=== PATIENT | female | born 1945 | race Caucasian/White ===

== ENCOUNTER → 2019-08-13 07:04 | Outpatient (CLI) | payer MEDICARE, SELFPAY ==
--- NOTE | 2019-08-13 07:05 | NM_ITS ---
APPROVED REPORT Exam: Nuclear Stress Test Indication: HTN, HYPERLIPIDEMIA, FM. HX, C.P., SOB, FATIGUE Patient Location: Outpatient Stress Tech: Mary Ibarra [place] Tech:Jennifer Guevara SHAKALazaro RT (R)(N)(M) Ht: 5 ft 4 in Wt: 156 lbs Bra Size: 38D HR: 61 bpm BP: 152/71 mmHg BSA: 1.76 m2 BMI: 26.7 History: HTN, HYPERLIPIDEMIA, FM. HX, C.P., SOB, FATIGUE Procedure: Patient received a 0.4 mg of intravenous Lexiscan, resting heart rate 61 bpm, resting blood pressure 152/71 mmHg, with Lexiscan maximum heart rate achived was 92 bpm which is Less than 85 % of the maximum predicted heart rate and blood pressure was 142/66 mmHg. With Lexiscan, patient denied any complaint of chest pain. Electrocardiogram Resting electrocardiogram showed sinus rhythm, with Lexiscan there is less than 1.[address] segment depression noted from the baseline EKG. The EKG portion of the Lexiscan Myoview is nondiagnostic. Cardiac Stress and Resting SPECT Images: Cardiac Stress and Resting SPECT images were obtained using technetium 99m Myoview 30.2 mCi stress and 10.99 mCi at rest. Gated SPECT for the analysis of segmental wall motion and calculation of the ejection fraction also done. Cardiac stress and resting SPECT images show uniform myocardial activity without segmental perfusion abnormality, computer derived ejection fraction is over 65% with no regional wall motion abnormality, right ventricle is normal size and contractility. Conclusion: 1. The EKG portion of the Lexiscan Myoview is nondiagnostic. 2. No scintigraphic evidence of reversible ischemia seen, computer derived ejection fraction is over 65% with no regional wall motion abnormality, right ventricle is normal size and contractility. 3. Normal Lexiscan Myoview study. Electronically signed by : Ld Kingston, 08/14/2019 10:00:06
--- NOTE | 2019-08-13 07:05 | CA_ITS ---
APPROVED REPORT EXAM: Comprehensive 2D, Doppler, and color-flow Echocardiogram Metal Tile Lather: Alessia Gracia CRT Ht: 5 ft 4 in Wt: 161lbs BSA: 1.78 BP: 143/68 mmHg Indications: Abnormal ECG, Chest Pain, Shortness of Breath, Hyperlipidemia, Hypertension/HDD 2D Dimensions LVOT 2.01 cm (M/F) 1.5-2.5 M-Mode Dimensions RVDd 2.17 cm (0.9-2.6) LVDd 5.37 cm (3.5-5.7) LVDs 3.28 cm (3.5-5.7) IVSd 0.95 cm (0.6-1.1) PWd 0.88 cm (0.6-1.1) EF (Teich) 68.80% FS 38.90% EDV (Teich) 139.50 mL ESV (Teich) 43.50 mL LV Diastology E/A Ratio 0.87 Mitral Valve MV A Velocity 80.00 (40-130 cm/s) Left Ventricle Left atrium is mildly enlarged, left ventricle is normal size, mild concentric left ventricular hypertrophy, visually estimated ejection fraction 55% with no regional wall motion abnormality, grade 1 diastolic dysfunction seen without tissue Doppler evidence of raise left atrial pressure. Right Ventricle Right atrium and right ventricle are mildly enlarged with normal contractility. Aortic Valve Aortic valve is minimally thickened and fibrosed, there is no aortic stenosis, there is mild aortic insufficiency. Mitral Valve Mitral valve leaflets are minimally thickened, there is no mitral stenosis, there is mild mitral regurgitation. Tricuspid Valve Tricuspid valve is grossly normal, there is mild tricuspid regurgitation, calculated right ventricular systolic pressure is 28 mmHg. Pulmonic Valve Pulmonic valve is poorly visualized. Great Vessels Aortic root is normal size. Pericardium No significant pericardial effusion noted. Conclusion 1. Mild biatrial enlargement, normal left ventricular size, mild concentric left ventricular hypertrophy, visually estimated ejection fraction 55% with no regional wall motion abnormality, grade 1 diastolic dysfunction seen without tissue Doppler evidence of raise left atrial pressure. 2. Mildly enlarged right ventricle with normal contractility. 3. Mild aortic, mild mitral and tricuspid regurgitation, calculated right ventricular systolic pressure is 28 mmHg. 4. No significant pericardial effusion noted. Electronically signed by : Ld Kingston 08/14/2019 10:54:17
--- NOTE | 2019-08-13 07:05 | CA_ITS ---
APPROVED REPORT Exam: Pharmacologic Technologist: Mary Ibarra Ht: 5 ft 4 in Wt: 156 lbs BSA: 1.76 m2 HR: 61 bpm BP: 152/71 mmHg Indications: Shortness of Air, chest pain Medical History Medications: Omeprazole,,,,, Alprazolam,,,,, Levothyroxine,,,,, Aspirin,,,,, Simvastatin,,,,, Carvedilol,,,,, DulOXETINE,,,,, Cyclobenzaprine,,,,, TriMethopriim,,,,, Stress Test Details Test: LEXISCAN HR Resting HR: 66 bpm Max Heart Rate (APMHR): 146 bpm Max HR Achieved: 94 bpm Target HR (85% APMHR): 124 bpm % of APMHR: 64 Recovery HR: 71 bpm BP Resting BP: 152.0/71.0 mmHg Max BP: 152.0/71.0 mmHg Recovery BP: 142.0/69.0 mmHg ECG Clinical Exercise duration: 04:01 min Highest Stage Achieved: Stress ECG Conclusion Resting ECG: Normal sinus rhythm, low voltage QRS in precordial leads. Symptoms: Leg weakness, mild stomach discomfort. No chest pain. Arrhythmias/Ectopy: Occasional PAC ST-T Changes: No significant changes. Conclusion: Unremarkable Lexiscan stress. Myoview images reported separately. Electronically signed by : Ld Kingston, 08/14/2019 09:58:11
--- NOTE | 2019-08-13 08:00 | HMH.ITSHM ---
Current Home Medications as stated by this patient Tran Conley or human resources hr representative. []ASA ALPRAZOLAM MAGNESIUM CARVEDILOL DICLOFENAC PRESERVISION DULOXETINE FISH OIL LEVOTHYROXINE OMEPRAZOLE SIMVASTATIN
== END ==
PROVIDERS: PCP Internal Medicine; Visit Provider Internal Medicine
DX: E78.2 Mixed hyperlipidemia (principal); I10 Essential (primary) hypertension; R06.02 Shortness of breath; R07.9 Chest pain, unspecified; R94.31 Abnormal electrocardiogram [ECG] [EKG]
CPT/HCPCS: 78452; 93017; 93306; A9502; J2785

== ENCOUNTER 2019-08-21 08:29 | Day surgery (SDC) | payer MEDICARE, SELFPAY ==
[2019-08-21] VITALS (11 sets, daily range): BP systolic 123–151; BP diastolic 59–80; PULSE 52–69; RESP 16–18; TEMP 36.3; O2SAT 92–99; BMI 26.9
--- NOTE | 2019-08-21 | IR_ITS ---
APPROVED REPORT Patient Location: Outpatient Business Development Specialist: LUIS CARLOS Heller RT (R) PROCEDURES Left heart catheterization Left ventriculogram Selective coronary angiogram INDICATION Abnormal Myoview, Angina pectoris Informed consent was obtained prior to the procedure. COMPLICATIONS None Estimated Blood Loss: less than 10ml TECHNIQUE One percent lidocaine used to anesthetize the right anterior aspect of the wrist. The right radial artery was accessed via the Seldinger technique. A 6 American sheath was placed in the right radial artery. 2.5 mg of verapamil, 800 mcg of nitroglycerin, 1mg Lidocaine and 5000 U Heparin were given through the arterial sheath. The trap catheter was also used to perform left heart catheterization, left ventriculogram and selective coronary angiogram. At the end of the procedure the sheath was removed good hemostasis was achieved using Traclet band, patient was transferred to the postop holding area in stable condition. ANGIOGRAPHIC RESULTS The left main artery Normal The left anterior descending artery Normal The circumflex artery Normal The right coronary artery Dominant normal The MERLOS ventriculogram reveals Normal 65% The left ventricular end-diastolic pressure 10 mmHg IMPRESSION Normal coronary arteries Normal ejection fraction Normal left ventricular end-diastolic pressure PLAN 1. Medical management Electronically signed by : Jabari Hickey, 08/21/2019 10:28:20
[2019-08-21 09:06] LABS: Hemoglobin 14.1 g/dL (12.2-16.2); Mean Corpuscular HGB Conc 33.6 g/dL (31.8-35.4); Mean Corpuscular Hemoglobin 34.2 pg (27.0-31.2); Mean Corpuscular Volume 101.9 fl (81-99); Mean Platelet Volume 7.6 fl (7.4-10.4); Platelet Count 231 K/mm3 (142-424); Red Blood Count 4.12 M/mm3 (4.20-5.40); Red Cell Distribution Width 14.2 % (11.5-17.5); White Blood Count 6.8 K/mm3 (4.8-10.8)
[2019-08-21 09:07] LABS: Basophils # 0.1 K/mm3 (0-0.2); Eosinophils # 0.5 K/mm3 (0.0-0.4); Eosinophils % 6.7 % (0.1-12.0); Monocytes # 0.6 K/mm3 (0.1-1.0); Monocytes % 8.1 % (1.7-9.3); Neutrophils # 3.7 K/mm3 (1.8-7.8); Neutrophils % 54.3 % (37.0-80.0)
[2019-08-21 09:17] LABS: Anion Gap 11.1 mEq/L (5-15); Blood Urea Nitrogen 22 mg/dl (7-17); Calcium 10.6 mg/dl (8.4-10.2); Carbon Dioxide 35 mmol/L (22.0-30.0); Chloride 97 mmol/L (98-107); Creatinine Clearance Estimated 55 mL/min (50-200); Estimated Glomerular Filt Rate 121 ml/min (>60); GFR (African American) 146 ML/MIN (>60); Glucose 103 mg/dl (74-100); Potassium 4.1 mmoL/L (3.5-5.1); Sodium 139 mmol/L (136-145)
== END 2019-08-21 13:53 | disposition home or self-care (01) ==
LOC: CATHLAB 08:32
PROVIDERS: PCP Internal Medicine; Visit Provider Internal Medicine
DX: I25.118 Atherosclerotic heart disease of native coronary artery with other forms of angina pectoris (principal); I10 Essential (primary) hypertension; E03.9 Hypothyroidism, unspecified; E78.5 Hyperlipidemia, unspecified; Z88.1 Allergy status to other antibiotic agents; Z88.9 Allergy status to unspecified drugs, medicaments and biological substances; Z79.82 Long term (current) use of aspirin; Z79.899 Other long term (current) drug therapy; Z91.041 Radiographic dye allergy status
CPT/HCPCS: 80048; 85025; 93458; 99152; C1725; C1769; J1644; Q9967

== ENCOUNTER 2024-12-10 13:26 | Outpatient (CLI) | payer MEDICARE, SELFPAY ==
--- OUTSIDE RECORDS SUMMARY | 2024-10-13 16:00 | XMS_ITS | Encounter Summary ---
Author Organization [place] [address] Care Team Providers Care Braille Teacher Name Role Phone Venkatesh Lan MD Primary Care Provider Alexandr Arboleda MD Unavailable [phone] Encounter Details Date Type Department Care Team (Latest Contact Info) Description 10/13/2024 5:00 PM EDT - 10/13/2024 11:59 PM EDT Hospital Encounter [facility] [address] [place] [address] Rheumatoid arthritis of multiple sites with negative rheumatoid factor (HCC); Inflammatory osteoarthritis; Primary osteoarthritis involving multiple joints; Spondylosis of lumbosacral region 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 radiculopathy; Spondylosis of cervical region 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 radiculopathy; Macular degeneration of both eyes, unspecified type; Medication monitoring encounter Discharge Disposition: Home or Self Care Social History Tobacco Use Types Packs/Day Years Used Date Smoking Tobacco: Never Smokeless Tobacco: Never Alcohol Use Standard Drinks/Week Comments Not Currently 0 (1 standard drink = 0.6 oz pur e alcohol) Sexually Active Control Partners Comments Yes Comments No Sex and Gender Information Value Date Recorded Sex Assigned at Not on file Legal Sex Female 11:51 PM EDT Gender Identity Not on file Sexual Orientation Not on file documented as of this encounter Medications at Time of Discharge alprazolam (XANAX) 0.5 mg tablet Take 0.5 mg by mouth nightly. b szwvumh-X-dqssh acid (NEPHROCAP) 1 mg Oral Capsule Take 1 Capsule by mouth daily. calcium citrate/vitamin D3 (CITRACAL + D ORAL) Take 2,400 mg by mouth daily. carvediloL (COREG) 6.25 mg Oral Tablet Take 6.25 mg by mouth 2 times daily (with meals). ELIQUIS 5 mg Oral Tablet Take 5 mg by mouth 2 times daily. 11/21/2022 estradioL (ESTRACE) 0.01 % (0.1 mg/gram) Vagl CreamIndications:Vag inal atrophy Place 1 g vaginally nightly. Do not use applicator. Apply pea sized amount to the area 3 times a week 42.5 g 1 12/14/2021 gabapentin (NEURONTIN) 100 mg Oral Capsule Take 2 Capsules by mouth 2 times daily. 120 Capsule 5 08/21/2023 hydroCHLOROthiazide (HYDRODIURIL) 12.5 mg Oral Tablet Take 12.5 mg by mouth every morning. LEVOthyroxine (SYNTHROID) 75 mcg Oral Tablet Take 75 mcg by mouth every morning. multivit-min/ferrous fumarate (MULTI VITAMIN ORAL) Take by mouth daily. OMEGA-3 FATTY ACIDS (FISH OIL CONCENTRATE ORAL) Take 1,200 mg by mouth 2 times daily. omeprazole (PRILOSEC) 20 mg Take 20 mg by mouth daily as needed. prednisoLONE acetate (PRED FORTE) 1 % Opht Drops, SuspensionIndication s:Glaucoma suspect of both eyes Place 1 Drop into both eyes 4 times daily. On the Laser eye after the Laser Procedure 5 mL 08/03/2023 PROLIA 60 mg/mL SubQ Syringe Inject ONE ML UNDER THE SKIN FOR one DAY FOR osteoporosis, REPEAT in six MONTHS 08/01/2024 simvastatin (ZOCOR) 20 mg tablet Take 20 mg by mouth nightly. vit C/E/Zn/coppr/lutein/ zeaxan (PRESERVISION AREDS-2 ORAL) Take 1 Tablet by mouth 2 times daily. XARELTO 10 mg Oral Tablet Take 10 mg by mouth daily. 04/20/2023 bimatoprost 0.01 % Opht DropsIndications:Lorena manpreet open angle glaucoma (POAG) of both eyes, mild stage Place 1 Drop into both eyes nightly. 7.5 mL 1 07/24/2024 5 cycloSPORINE (CEQUA) 0.09 % Opht DropperetteIndicatio ns:Keratitis sicca Place 1 Drop into both eyes 2 times daily. 180 Each 1 03/27/2024 5 diclofenac sodium (PENNSAID) 20 mg/gram /actuation(2 %) Top solution in metered-dose pump Apply 40 mg topically 2 times daily. 2 Each 5 05/19/2024 5 DULoxetine (CYMBALTA) 60 mg Oral Capsule, Delayed Release(E.C.)Indicat ions:Primary osteoarthritis involving multiple joints Take 1 Cap by mouth daily. 90 Cap 1 03/29/2020 5 sulfaSALAzine (AZULFIDINE) 500 mg Oral Tablet, Delayed Release (E.C.)Indications:Rh eumatoid arthritis of multiple sites with negative rheumatoid factor (HCC) TAKE THREE TABLETS BY MOUTH TWICE DAILY 540 Tablet 04/14/2024 5 documented as of this encounter Discharge Disposition Disposition Code Departure Means Destination Home or Self Care documented in this encounter Plan of Treatment Upcoming Encounters Date Type Department Care Team (Late st Contact Info) Description 12/17/2024 1:45 PM EST Office Visit [facility] [address] [address] Kory Garcia MD [address] [place] [phone] 12/29/2024 1:00 PM EST Office Visit [address] [address] 01/07/2025 11:00 AM EST Office Visit [address] [address] Greg Stringer PA-C [address] [address] 01/23/2025 10:30 AM EST Appointment [facility] Building [address] 4th [address] [place] [address] Lucinda Contreras, SCENARIO WRITER [address] [facility], [place] [phone] 03/03/2025 11:45 AM EST Office Visit [facility] [address] [facility] [address] Lucinda Contreras, SCENARIO WRITER [address] [place], [place] [id number] 03/24/2025 3:00 PM EST Office Visit [facility] [address] [facility] [address] [place], [place] [id number] Alexandr Arboleda MD [address] [facility] [address] [place], [place] [phone] 03/31/2025 10:45 AM EST Office Visit [facility] [address] [place] [address] Carl Rivera MD [address] [place], [place] [id number] documented as of this encounter Procedures Procedure Name Priority Date/Time Associated Diagnosis Comments SEDIMENTATION RATE AUTOMATED Routine 10/13/2024 5:07 PM EDT Rheumatoid arthritis of multiple sites with negative rheumatoid factor (HCC) 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 of cervical region 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 radiculopathy Macular degeneration of both eyes, unspecified type Medication monitoring encounter CBC WITH DIFF Routine 10/13/2024 5:07 PM EDT Rheumatoid arthritis of multiple sites with negative rheumatoid factor (HCC) 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 of cervical region 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 radiculopathy Macular degeneration of both eyes, unspecified type Medication monitoring encounter C-REACTIVE PROTEIN Routine 10/13/2024 5: 07 PM EDT Rheumatoid arthritis of multiple sites with negative rheumatoid factor (HCC) 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 of cervical region 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 radiculopathy Macular degeneration of both eyes, unspecified type Medication monitoring encounter COMPREHENSIVE METABOLIC PANEL Routine 10/13/2024 5:07 PM EDT Rheumatoid arthritis of multiple sites with negative rheumatoid factor (HCC) 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 of cervical region 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 radiculopathy Macular degeneration of both eyes, unspecified type Medication monitoring encounter documented in this encounter Results * SEDIMENTATION RATE AUTOMATED (10/13/2024 5:07 PM EDT) Pathologist [facility] Sed Rate 3 0 - 30 mm/hr 10/13/2024 9:45 PM EDT [facility] [employer] Blood VENOUS BLOOD / Unknown Venipuncture / Unknown 10/13/2024 5:07 PM EDT 10/13/2024 5:18 PM EDT Alexandr Arboleda MD HEMATOLOGY ORDERABLES Final R esult Performing Organization Address [facility] Co de Phone Number [facility] [employer] [address] [place] [address] , [place] [address] * C-REACTIVE PROTEIN (10/13/2024 5:07 PM EDT) [facility] CRP <3.00 <=5.00 mg/L 10/13/2024 10:09 PM EDT [employer] Blood VENOUS BLOOD / Unknown Venipuncture / Unknown 10/13/2024 5:07 PM EDT 10/13/2024 5:18 PM EDT Alexandr Arboleda MD CHEMISTRY ORDERABLES Final Re sult Performing Organization Address City/[facility]/ZIP Co de Phone Number [facility] [employer] [address] , [place] [address] * (ABNORMAL) COMPREHENSIVE METABOLIC PANEL (10/13/2024 5:07 PM EDT) Sodium 143 136 - 145 mmol/L 10/13/2024 10:09 PM EDT [facility] Potassium 3.4(L) 3.5 - 5.0 mmol/L 10/13/2024 10:09 PM EDT [facility] Chloride 101 98 - 107 mmol/L 10/13/2024 10:09 PM EDT [facility] Total CO2 30(H) 22 - 29 mmol/L 10/13/2024 10:09 PM EDT [facility] Anion Gap 12 7 - 16 mmol/L 10/13/2024 10:09 PM EDT [facility] Calcium 10.1 8.8 - 10.4 mg/dL 10/13/2024 10:09 PM EDT [facility] Glucose Lvl 84 70 - 99 mg/dL 10/13/2024 10:09 PM EDT [facility] BUN 18 8 - 23 mg/dL 10/13/2024 10:09 PM EDT [facility] Creatinine 0.67 0.51 - 1.30 mg/dL 10/13/2024 10:09 PM EDT [facility] Albumin 4.4 3.2 - 4.6 gm/dL 10/13/2024 10:09 PM EDT [facility] Total Protein 6.6 6.4 - 8.3 gm/dL 10/13/2024 10:09 PM EDT [facility] Bili Total 0.4 0.2 - 1.3 mg/dL 10/13/2024 10:09 PM EDT [facility] ALT 26 <=41 U/L 10/13/2024 10:09 PM EDT [facility] AST 29 <=40 U/L 10/13/2024 10:09 PM EDT [facility] Alk Phos 56 36 - 123 U/L 10/13/2024 10:09 PM EDT [facility] eGFR (CKD-EPIcr 2020) 88 >=60 mL/min/1.7 3 m2 10/13/2024 10:09 PM EDT [facility] Comment:Estimated GFR was ca lculated using the CKD-EPIcr (2020) equation refit without race. The equation is recommended by the National Kidney Foundation - [place] [employer] Nephrology Task Force. Blood VENOUS BLOOD / Unknown Venipuncture / Unknown 10/13/2024 5:07 PM EDT 10/13/2024 5:18 PM EDT us Alexandr Arboleda MD CHEMISTRY ORDERABLES Final Re sult [facility] [address] [facility] , [place] [address] * (ABNORMAL) CBC WITH DIFF (10/13/2024 5:07 PM EDT) WBC 5.4 3.7 - 10.3 x10(3)/mc L 10/13/2024 9:58 PM EDT [facility] RBC 3.46(L) 3.90 - 5.20 x10(6)/mc L 10/13/2024 9:58 PM EDT [facility] Hgb 11.5 11.2 - 15.7 g/dL 10/13/2024 9:58 PM EDT [facility] Hct 36.8 34.0 - 45.0 % 10/13/2024 9:58 PM EDT [facility] MCV 106.4(H) 80.0 - 100.0 fL 10/13/2024 9:58 PM EDT [facility] MCH 33.2 26.0 - 34.0 pg 10/13/2024 9:58 PM EDT [facility] MCHC 31.3 30.7 - 35.5 g/dL 10/13/2024 9:58 PM EDT [facility] RDW 13.4 <=14.9 % 10/13/2024 9:58 PM EDT [facility] Platelet 252 155 - 369 x10(3)/mc L 10/13/2024 9:58 PM EDT [facility] MPV 10.1 8.8 - 12.5 fL 10/13/2024 9:58 PM EDT [facility] Neut Percent 51.8 % 10/13/2024 9:58 PM EDT [facility] Comment:Neutrophils equals s egs plus bands Imm Gran% 0.4 % 10/13/2024 9:58 PM EDT [facility] Comment:Automated count of m etamyelocytes, myelocytes and promyelocytes. Lymph Percent 30.7 % 10/13/2024 9:58 PM EDT [facility] Bibb Percent 13.6 % 10/13/2024 9:58 PM EDT [facility] Eos Percent 2.6 % 10/13/2024 9:58 PM EDT [facility] Baso Percent 0.9 % 10/13/2024 9:58 PM EDT [facility] Neut # 2.8 1.6 - 6.1 x10(3)/mc L 10/13/2024 9:58 PM EDT [facility] Comment:Neutrophils equals s egs plus bands IMMGRAN# 0.0 0.0 - 0.1 x10(3)/mc L 10/13/2024 9:58 PM EDT [facility] Comment:Automated count of m etamyelocytes, myelocytes and promyelocytes. An absolute IG <0.1 is reported as 0.0. Lymph # 1.7 1.2 - 3.9 x10(3)/mc L 10/13/2024 9:58 PM EDT [facility] Bibb # 0.7 0.3 - 0.9 x10(3)/mc L 10/13/2024 9:58 PM EDT [facility] Eos# 0.1 0.0 - 0.5 x10(3)/mc L 10/13/2024 9:58 PM EDT [facility] Baso # 0.1 0.0 - 0.1 x10(3)/mc L 10/13/2024 9:58 PM EDT [facility] RBC Morph Consistent with Red Cell Indices no units 10/13/2024 9:58 PM EDT [facility] Blood VENOUS BLOOD / Unknown Venipuncture / Unknown 10/13/2024 5:07 PM EDT 10/13/2024 5:18 PM EDT us Alexandr Arboleda MD HEMATOLOGY ORDERABLES Final R esult [facility] [employer] [address] [facility] , [facility] [place] [address] documented in this encounter Visit Diagnoses Diagnosis Rheumatoid arthritis of multiple sites with negative rheumatoid factor (HCC) Inflammatory osteoarthritis Osteoarthrosis, unspecified whether generalized or localized, unspecified site 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 Lumbosacral spondylosis without myelopathy Spondylosis of cervical region 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 radiculopathy Cervical spondylosis without myelopathy Macular degeneration of both eyes, unspecified type Medication monitoring encounter Encounter for therapeutic drug monitoring documented in this encounter Additional Health Concerns Assessment Noted Time A fall risk assessment has been complete d for the patient 12/02/2018 1:25 PM EDT documented as of this encounter Care Teams Braille Teacher Relationship Specialty Start Date End Date Venkatesh Lan MD [address] [place] [address] PCP - General 09/07/09 Alexandr Arboleda MD [address] [place] [id number] Internal Medicine-Rheumatology 03/10/14 documented as of this encounter
--- OUTSIDE RECORDS SUMMARY | 2024-10-21 09:55 | XMS_ITS | Encounter Summary ---
Author Organization [place] [address] Care Team Providers Care Guest Relations Associate Name Role Phone Venkatesh Lan MD Primary Care Provider Alexandr Arboleda MD Unavailable [phone] Reason for Referral * Interventional Radiology (Routine) - Closed Specialty Diagnoses / Procedures Referred By Jenni schaffer Referred To Contact Radiology Diagnoses Cervical radiculitis Procedures IR CERVICAL/THORACIC RIP WITH GUIDANCE Lucinda Contreras APRN [address] [place] [address] Phone: tel: fax: Referral ID Status Reason Start Date Expiration Date Visits Re quested Visits Authorized [id number] Closed 09/25/2024 09/25/2025 1 1 Reason for Visit * Interventional Radiology (Routine) - Closed Specialty Diagnoses / Procedures Referred By Jenni schaffer Referred To Contact Radiology Diagnoses Cervical radiculitis Procedures IR CERVICAL/THORACIC RIP WITH GUIDANCE Lucinda Contreras APRN [address] [place] [address] Phone: tel: fax: Referral ID Status Reason Start Date Expiration Date Visits Re quested Visits Authorized [id number] Closed 09/25/2024 09/25/2025 1 1 Encounter Details Date Type Department Care Team (Latest Contact Info) Description 10/21/2024 10:55 AM EDT - 10/21/2024 11:59 PM EDT Hospital Encounter [facility] [address] [place] [address] Lucinda Contreras, CHARGE MACHINE OPERATOR [address] [place], [place] [id number] Cervical radiculitis Discharge Disposition: Home or Self Care Social [...] on file documented as of this encounter Last Filed Vital Signs Vital Sign Reading Time Taken Comments Blood Pressure 129/62 10/21/2024 11:45 AM EDT Pulse 52 10/21/2024 11:45 AM EDT Temperature 36.5 C (97.7 F) 10/21/2024 11:02 AM EDT Respiratory Rate - - Oxygen Saturation 99% 10/21/2024 11:45 AM EDT Inhaled Oxygen Concentration - - Weight - - Height - - Body Mass Index - - documented in this encounter Discharge Instructions * Discharge Instructions* Glenna Chávez, RT - 10/21/2024 11:03 AM EDT To make a follow-up office visit please call: [facility] [phone] option #1 OUTPATIENT SPINE DISCHARGE INSTRUCTIONS AFTER THE PROCEDURE SYMPTOMS MAY INCLUDE: Weakness/numbness in arm, leg, which disappears in a few hours No driving for 12 hours Resume medications *resume blood thinners next day* Mild soreness at injection site Pain may worsen right after procedure Steroid results may take 3 to 7 days to begin to have a positive effect Wait 2 weeks to get a Covid vaccine HOME CARE INSTRUCTIONS: No heat on the injection site for 24 hours Use ice packs/mild pain relievers to help with mild pain Do not soak in water for 24 hours Remove bandage in a few hours Resume your normal activities the next day Observe injection site for any signs of infection; example: redness, warmth, swelling Resume blood thinners the next day SEEK MEDICAL CARE IF YOU DEVELOP: Fever of 100?? F Severe headache, stiff neck, or sensitivity to light Lose control over your bladder or bowel movements Difficulty breathing New onset numbness or weakness Severe back pain, which is not relieved by medication IF YOU ARE DIABETIC: Please note that your blood sugar may increase post procedure. We recommend that you check your blood sugar regularly. If your blood sugar results are above 250: If you have a plan to lower your blood sugar, please follow those instructions. If you do not have a plan to regulate your blood sugars, please contact the Physician that manages your diabetes and inform them you had a steroid injection. Procedure Nurse Line - M- 7:30am-4pm call [phone] After and Fridays, please call [phone] to be connected to the on-call physician. documented in this encounter Medications at Time of Discharge alprazolam (XANAX) 0.5 mg tablet Take 0.5 mg by mouth nightly. b dvcgbyb-I-frqbi acid (NEPHROCAP) 1 mg Oral Capsule Take 1 Capsule by mouth daily. calcium citrate/vitamin D3 (CITRACAL + D ORAL) Take 2,400 mg by mouth daily. carvediloL (COREG) 6.25 mg Oral Tablet Take 6.25 mg by mouth 2 times daily (with meals). diclofenac sodium (PENNSAID) 20 mg/gram /actuation(2 %) Top solution in metered-dose pump Apply 40 mg topically 2 times daily. 2 Each 5 10/21/2024 DULoxetine (CYMBALTA) 60 mg Oral Capsule, Delayed Release(E.C.)Indicat ions:Primary osteoarthritis involving multiple joints Take 1 Capsule by mouth daily. 90 Capsule 1 10/21/2024 ELIQUIS 5 mg Oral Tablet Take 5 [...] tablet Take 20 mg by mouth nightly. sulfaSALAzine (AZULFIDINE) 500 mg Oral Tablet, Delayed Release (E.C.)Indications:Rh eumatoid arthritis of multiple sites with negative rheumatoid factor (HCC) Take 3 Tablets by mouth 2 times daily. 540 Tablet 10/21/2024 vit C/E/Zn/coppr/lutein/ zeaxan (PRESERVISION AREDS-2 ORAL) Take [...] times daily. 180 Each 1 03/27/2024 5 documented as of this encounter Discharge Disposition Disposition Code Departure Means Destination Home or Self Care documented in this encounter Progress Notes * Glenna Chávez, RT - 10/21/2024 11:00 AM EDT Pt tolerated procedure well. No new pain, numbness or tingling. Dressing dry and intact. Verbal andwritten discharge instructions given and pt states understanding. Pt was checked for stability and discharged with a airport driver via wheelchair. documented in this encounter Plan of Treatment Upcoming Encounters Date Type Department Care Team (Late st Contact Info) Description 12/17/2024 1:45 PM EST Office Visit [facility] [address] [address] Kory Garcia MD [address] [place] [id number] 12/29/2024 1:00 PM EST Office Visit [address] [id number] 01/07/2025 11:00 AM EST Office Visit [address] [address] Greg Stringer PA-C [address] [address] 01/23/2025 10:30 AM EST Appointment [facility] [address] [facility] [address] 4[address] [place] [address] Lucinda Contreras, CHARGE MACHINE OPERATOR [address] [place] [address] 03/03/2025 11:45 AM EST Office Visit [facility] [address] [place] [address] Lucinda Contreras APRN [address] [place] [address] 03/24/2025 3:00 PM EST Office Visit [facility] [address] [facility] [address] [place], [place] [id number] Alexandr Arboleda MD [address] [facility] [address] [place], [place] [id number] 03/31/2025 10:45 AM EST Office Visit [facility] [address] [place] [address] Carl Rivera MD [address] [place] [address] documented as of this encounter Procedures Procedure Name Priority Date/Time Associated Diagnosis Comments IR CERVICAL/THORACIC RIP WITH GUIDANCE Routine 10/21/2024 11:37 AM EDT Cervical radiculitis documented in this encounter Results * IR CERVICAL/THORACIC RIP WITH GUIDANCE (10/21/2024 11:37 AM EDT) Anatomical Region Laterality Modality Radio Fluoroscop y Narrative 10/21/2024 11:43 AM EDT [facility] PROCEDURE NOTE Tran Conley October 21, 2024 SURGEON(S): Javi Coy MD PRE-OP DIAGNOSIS: Cervical radiculopathy POST-OP DIAGNOSIS: Cervical radiculopathy IMAGING: Fluoroscopy PROCEDURE: Cervical Epidural Steroid Injection Under Fluoroscopic Guidance Level: C7-T1 PROCEDURE DETAILS: After reviewing the patient's chart, informed consent was obtained and the patient was brought to the procedure room. The patient was placed in a prone position on fluoroscopy table with their neck flexed and their head in a herron. A formal time out was performed identifying the correct patient, correct procedure, reviewing anticoagulation status, reviewing allergies and verifying the correct sites and side. Next, their neck and upper thoracic back was prepped with antiseptic solution and draped in the usual sterile fashion. The overlying skin was identified under fluoroscopic guidance and infiltrated with 1% Lidocaine for local anesthesia via 25 gauge needle. [facility] was used under fluoroscopic guidance to access the epidural space using loss of resistance to air technique at C7-T1 interspace. Approximately 2 mL of Isovue 200 contrast was used to confirm needle position and contrast spread. Following negative aspiration, a mixture of 15 mg of Decadron and 2 mL's of preservative free normal saline was injected with minimal pressure. CSF was negative, Paresthesia was negative, Heme was negative. The needle was cleared with preservative free local anesthetic and removed. Skin was cleaned and a sterile dressing was applied. The patient tolerated the procedure well and vital signs were stable and patient was taken to the procedure recovery room without issues. EBL: approx 0-1cc Images of procedure found under images tab dated: 10/21/2024 DISPOSITION/POST PROC COURSE: The patient was monitored for any adverse hemodynamic, allergic, or neurological symptoms. The patient tolerated the procedure well with no apparent complications. Vital signs remained stable throughout the procedure. The patient was taken to the recovery area where written discharge instructions for the procedure were given. The patient was discharged home. @VITALS@ Javi Coy MD Interventional Pain Management [facility] Date: 10/21/2024 Lucinda Cervantes CHARGE MACHINE OPERATOR IMG IR ORDERABLES Final Result documented in this encounter Visit Diagnoses Diagnosis Cervical radiculitis Brachial neuritis or radiculitis nos documented in this encounter Administered Medications Inactive Administered Medications - up to 1 most recent administrations Medication Order MAR Action Action Date Dose Rate Site dexAMETHasone sodium phosphate (DECADRON) solution 15 mg 15 mg, Injection, ONCE PRN, 1 dose, Starting on Sun10/21/24 at 1137, Until Sun10/21/24 at 1139, Spine Procedure, OP Spine (Meds) Given by Other 10/21/2024 11:39 AM EDT 15 mg gadoterate meglumine (DOTAREM) solution 2 mL 2 mL, Intravenous, ONCE PRN, 1 dose, Starting on Sun10/21/24 at 1137, Until Sun10/21/24 at 1140, Spine Procedure, VESICANT , OP Spine (Meds) Given by Other 10/21/2024 11:40 AM EDT 2 mL lidocaine 10 mg/mL (1 %) injection (PF) 5 mL 5 mL, Intradermal, ONCE PRN, 1 dose, Starting on Sun10/21/24 at 1137, Until Sun10/21/24 at 1139, Spine Procedure, OP Spine (Meds) Given by Other 10/21/2024 11:39 AM EDT 5 mL sodium chloride 0.9% injection/flush solution 1 mL 1 mL, Epidural, ONCE PRN, 1 dose, Starting on Sun10/21/24 at 1137, Until Sun10/21/24 at 1139, Line Care, Spine Procedure, OP Spine (Meds) Given by Other 10/21/2024 11:39 AM EDT 1 mL documented in this encounter Additional Health Concerns Assessment Noted Time A fall risk assessment has been complete d for the patient 12/02/2018 1:25 PM EDT documented as of this encounter Care Teams Guest Relations Associate Relationship Specialty Start Date End Date Venkatesh Lan MD [address] [place] [address] PCP - General 09/07/09 Alexandr Arboleda MD [address] [address] Internal Medicine-Rheumatology 03/10/14 documented as of this encounter
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
--- OUTSIDE RECORDS SUMMARY | 2024-11-17 12:00 | XMS_ITS | Encounter Summary ---
Author Organization [facility] Address [address] [place] [address] Care Team Providers Care Agile Coach Name Role Phone Venkatesh Lan MD Primary Care Provider Alexandr Arboleda MD Unavailable [phone] Reason for Referral * Surgical (Routine) - AFF Authorization Not Needed Specialty Diagnoses / Procedures Referred By Contsusanne t Referred To Contact Diagnoses Trigger thumb, right thumb Procedures AMB OC SURGERY COMMUNICATION ORDER SD TENDON SHEATH INCISION Jerrica Dey PA-C [address] [place] [address] Phone: tel: fax: Referral ID Status Reason Start Date Expiration Date Visits Requested Visits Authorized [id number] AFF Authorization Not Needed 11/17/2025 1 1 Encounter Details Date Type Department Care Team (Late st Contact Info) Description 11/17/2024 1:00 [place] [address] Jerrica Dey PA-C [address] [place] [address] Trigger thumb, right thumb (Primary Dx) Social History Tobacco Use Types Packs/Day Years [...] on file documented as of this encounter Progress Notes * Basil Cordon ATC - 11/17/2024 1:00 PM EDTAssociated Order(s): Hand / Upper Extremity Injection/Arthrocentesis: R thumb A1 Hand / Upper Extremity Injection/Arthrocentesis: R thumb A1 Date/Time: 11/17/2024 1:00 PM Consent given by: patient Site marked: site marked Timeout: Immediately prior to procedure a time out was called to verify the correct patient, procedure, equipment, software support engineer and site/side marked as required Supporting Documentation Indications: pain Procedure Details Condition: trigger finger Location: thumb - R thumb A1 Preparation: Patient was prepped and draped in the usual sterile fashion Needle size: 25 G Approach: volar Medications administered: 1 mg betamethasone acet-betamethasone sodium phos 6 mg/mL Patient tolerance: patient tolerated the procedure well with no immediate complications Injection Type: Tendon Sheath Ligament * Jerrica Dey PA-C - 11/17/2024 1:00 PM EDT Images from the original note were not included. CHIEF COMPLAINT: Catching, clicking of right thumb History: 78 y.o. female who presents with complaints of sharp pain, catching and clicking Pain localized to the palm with radiation to the PIP joint. Worse with gripping activities. Duration: 1-2 months Previous treatment: None Gets steroid injections in back and in knees. Would like to try one injection and if does not work would like to proceed with surgery. [place] Diabetes: Patient is not diabetic. No results found for: HGBA1C Right Upper Extremity examination: Thumb Palpable nodule over the A1 alireza. Grade II triggering. No atrophy. range of motion: full Impression: right thumb trigger digit Plan: Discussed diagnosis of trigger digit including the natural history and treatment options - steroid injection versus surgery. Discussed and demonstrated a home exercise program. Patient education handout provided. Recommended and discussed the use of OTC medications for pain control. Discussed risks and benefits of steroid injection - patient elected to proceed. Patient would like to proceed with surgery if this does not resolve symptoms. [place] so will sign consent only. To minimize the need to return to the practice in person - in the most cost and time effective nature as possible I have discussed the potential need for surgery in the future. Assuming the symptoms do not improve and the patient wishes to proceed they may do so by simply contacting my office to schedule surgery in the near future. They understand at any point that new symptoms develop, current symptoms change or they have further questions about their care they will schedule a regular follow up to meet face to face. Given risk factors for failure of steroid injections -- recommended and consented for surgery. right thumb trigger digit release The risks, benefits and indications for operative treatment were discussed at length with the patient. Risks were specifically reviewed and include, but are not limited to: the risks of anesthesia, bleeding, infection, injury to nerve or vessel with permanent distal functional loss, continued mechanical symptoms and the need for secondary surgery. The postoperative course was explained. All questions were answered. The patient expressed understanding and the willingness to proceed. Antibiotics Rx - will be sent if proceeds. documented in this encounter Plan of Treatment Upcoming Encounters Date Type Department Care Team (Late st Contact Info) Description 12/17/2024 1:45 PM EST [facility] [address] [address] Kory Garcia MD [facility] [place] [address] 12/29/2024 1:00 PM EST Office Visit [address] [address] 01/07/2025 11:00 AM EST Office Visit [address], [place] [id number] Greg Stringer PA-C [address] [place] [address] 01/23/2025 10:30 AM EST Appointment [facility] [address] [facility] [address] 4th Floor [address] [place] [id number] Lucinda Contreras, FORKLIFT TECHNICIAN [address] [place] [address] 03/03/2025 11:45 AM EST Office Visit [facility] [address] [facility] [place] [address] Lucinda Contreras, FORKLIFT TECHNICIAN [address] [place], [place] [id number] 03/24/2025 3:00 PM EST Office Visit [facility] [address] [facility] [address] [place], [place] [phone] Alexandr Arboleda MD [address] [facility] Building [address] [place], [place] [phone] 03/31/2025 10:45 AM EST Office Visit [facility] [address] [place] [address] Carl Rivera MD [address] [place], [place] [id number] documented as of this encounter Procedures Procedure Name Priority Date/Time Associated Diagnosis Comments SD INJECTION 1 TENDON SHEATH/LIGAMENT APONEUROSIS Routine 11/17/2024 1:00 PM EDT Trigger thumb, right thumb documented in this encounter Results * SD INJECTION 1 TENDON SHEATH/LIGAMENT APONEUROSIS (11/17/2024 1:00 PM EDT) Narrative [facility]TH[facility] - 11/17/2024 1:00 PM EDT Basil Cordon, NANCY 11/17/2024 5:06 PM Hand / Upper Extremity Injection/Arthrocentesis: R thumb A1 Date/Time: 11/17/2024 1:00 PM Consent given by: patient Site marked: site marked Timeout: Immediately prior to procedure a time out was called to verify the correct patient, procedure, equipment, software support engineer and site/side marked as required Supporting Documentation Indications: pain Procedure Details Condition: trigger finger Location: thumb - R thumb A1 Preparation: Patient was prepped and draped in the usual sterile fashion Needle size: 25 G Approach: volar Medications administered: 1 mg betamethasone acet-betamethasone sodium phos 6 mg/mL Patient tolerance: patient tolerated the procedure well with no immediate complications Injection Type: Tendon Sheath Ligament Jerrica Dey PA-C PROCEDURE/MINOR SURGICA L ORDERABLES Final Result ORTHOCINCY documented in this encounter Visit Diagnoses Diagnosis Trigger thumb, right thumb- Primary documented in this encounter Administered Medications Inactive Administered Medications - up to 1 most recent administrations Medication Order MAR Action Action Date Dose Rate Site betamethasone acet-betamethasone sodium phos (CELESTONE) injection 1 mg 1 mg, Intra-articular, ONCE PRN, 1 dose, Starting on Sun11/17/24 at 1300, Until Sun11/17/24 at 1300, Dx: 1. Trigger thumb, right thumbIndications:Trigger thumb, right thumb Given 11/17/2024 1:00 PM EDT 1 mg Right Hand documented in this encounter Orders Medications Ordered That Sonu ht Not Have Been Administered Count Last Ordered Date First Ordered Date betamethasone acet-betametha sone sodium phos (CELESTONE) injection 1 mg 1 11/17/2024 Nursing Count Last Ordered Date First Orde red Date AMB OC SURGERY COMMUNICATION ORDER 1 2024 documented in this encounter Additional Health Concerns Assessment Noted Time A fall risk assessment has been complete d for the patient 12/02/2018 1:25 PM EDT documented as of this encounter Care Teams Agile Coach Relationship Specialty Start Date End Date Venkatesh Lan MD [address] [place] [address] PCP - General 09/07/09 Alexandr Arboleda MD [address] [place] [address] Internal Medicine-Rheumatology 03/10/14 documented as of this encounter
--- OUTSIDE RECORDS SUMMARY | 2024-11-25 10:35 | XMS_ITS | Encounter Summary ---
Author Organization [facility] Address [facility] [place] [address] Care Team Providers Care Substance Abuse Rn Name Role Phone Venkatesh Lan MD Primary Care Provider Alexandr Arboleda MD Unavailable [phone] Encounter Details Date Type Department Care Team (Latest Contact Info) Description 11/25/2024 11:35 AM EDT - 11/25/2024 11:59 PM EDT Hospital Encounter [facility] [address] [place] [id number] Rheumatoid arthritis of multiple sites with negative [...] Take 0.5 mg by mouth nightly. b tfgyguk-T-lxxdu acid (NEPHROCAP) 1 mg Oral Capsule Take 1 Capsule by mouth daily. bimatoprost 0.01 % Opht DropsIndications:Lorena manpreet open angle glaucoma (POAG) of both eyes, mild stage Place 1 Drop into both eyes nightly. 7.5 mL 3 11/25/2024 calcium citrate/vitamin D3 (CITRACAL + D ORAL) Take 2,400 mg by mouth daily. carvediloL (COREG) 6.25 mg Oral Tablet Take 6.25 mg by mouth 2 times daily (with meals). cycloSPORINE (CEQUA) 0.09 % Opht DropperetteIndicatio ns:Keratitis sicca Place 1 Drop into both eyes 2 times daily. 180 Each 1 11/25/2024 diclofenac sodium (PENNSAID) 20 mg/gram /actuation(2 %) [...] Take 10 mg by mouth daily. 04/20/2023 documented as of this encounter Discharge Disposition Disposition Code Departure Means Destination Home or Self Care documented in this encounter Plan of Treatment Upcoming Encounters Date Type Department Care Team (Late st Contact Info) Description 12/17/2024 1:45 PM EST Office Visit Zeke Sinclairence [address] [facility] [facility] Kory Garcia MD [address] [place] [address] 12/29/2024 1:00 PM EST Office Visit [address] [address] 01/07/2025 11:00 AM EST Office Visit [address] [address] Greg Stringer PA-C [address] [place] [address] 01/23/2025 10:30 AM EST Appointment [facility] [address] [facility] [address] 4th Floor - [address] [place] [phone] Lucinda Contreras, PUBLIC [employer]ESS [employer]CH[employer]IC [address] [facility] [place] [address] 03/03/2025 11:45 AM EST Office Visit [facility] [address] [place] [address] Lucinda Contreras, PUBLIC [employer]DRESS [employer] MECH[employer]IC [address] [place], [place] [id number] 03/24/2025 3:00 PM EST Office Visit [facility] [address] [place], [place] [id number] Alexandr Arboleda MD [address] [facility] Building [address] [place] [address] 03/31/2025 10:45 AM EST Office Visit [facility] [address] [place] [address] Carl Rivera MD [address] [place], [place] [phone] documented as of this encounter Procedures Procedure Name Priority Date/Time Associated Diagnosis Comments SEDIMENTATION RATE AUTOMATED Routine 11/25/2024 11:55 AM EDT Rheumatoid arthritis of multiple sites with negative rheumatoid factor (HCC) 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 of cervical region 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 radiculopathy Macular degeneration of both eyes, unspecified type Medication monitoring encounter CBC WITH DIFF Routine 11/25/2024 11:55 AM EDT Rheumatoid arthritis of multiple sites with negative rheumatoid factor (HCC) 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 of cervical region 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 radiculopathy Macular degeneration of both eyes, unspecified type Medication monitoring encounter C-REACTIVE PROTEIN Routine 11/25/2024 11 :55 AM EDT Rheumatoid arthritis of multiple sites with negative rheumatoid factor (HCC) 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 of cervical region 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 radiculopathy Macular degeneration of both eyes, unspecified type Medication monitoring encounter COMPREHENSIVE METABOLIC PANEL Routine 11/25/2024 11:55 AM EDT Rheumatoid arthritis of multiple sites with negative rheumatoid factor (HCC) 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 of cervical region 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 radiculopathy Macular degeneration of both eyes, unspecified type Medication monitoring encounter documented in this encounter Results * SEDIMENTATION RATE AUTOMATED (11/25/2024 11:55 AM EDT) [facility] Sed Rate 3 0 - 30 mm/hr 11/25/2024 12:41 PM EDT [facility] [employer] Blood VENOUS BLOOD / Unknown Venipuncture / Unknown 11/25/2024 11:55 AM EDT 11/25/2024 11:55 AM EDT Alexandr Arboleda MD HEMATOLOGY ORDERABLES Final R esult Performing Organization Address City/[facility]/ZIP Co de Phone Number [facility] [employer] [address] [place] [address] , [place] [address] * C-REACTIVE PROTEIN (11/25/2024 11:55 AM EDT) [facility] CRP <3.00 <=5.00 mg/L 11/25/2024 12:59 PM EDT [employer] Blood VENOUS BLOOD / Unknown Venipuncture / Unknown 11/25/2024 11:55 AM EDT 11/25/2024 11:55 AM EDT Alexandr Arboleda MD CHEMISTRY ORDERABLES Final Re sult Performing Organization Address City/[facility]/ZIP Co de Phone Number [facility] [employer] [address] , [place] [address] * (ABNORMAL) COMPREHENSIVE METABOLIC PANEL (11/25/2024 11:55 AM EDT) Sodium 139 136 - 145 mmol/L 11/25/2024 12:59 PM EDT [facility] Potassium 4.0 3.5 - 5.0 mmol/L 11/25/2024 12:59 PM EDT [facility] Chloride 101 98 - 107 mmol/L 11/25/2024 12:59 PM EDT [facility] Total CO2 27 22 - 29 mmol/L 11/25/2024 12:59 PM EDT [facility] Anion Gap 11 7 - 16 mmol/L 11/25/2024 12:59 PM EDT [facility] Calcium 9.6 8.8 - 10.4 mg/dL 11/25/2024 12:59 PM EDT [facility] Glucose Lvl 93 70 - 99 mg/dL 11/25/2024 12:59 PM EDT [facility] BUN 12 8 - 23 mg/dL 11/25/2024 12:59 PM EDT [facility] Creatinine 0.42(L) 0.51 - 1.30 mg/dL 11/25/2024 12:59 PM EDT [facility] Albumin 4.6 3.2 - 4.6 gm/dL 11/25/2024 12:59 PM EDT [facility] Total Protein 6.5 6.4 - 8.3 gm/dL 11/25/2024 12:59 PM EDT [facility] Bili Total 0.5 0.2 - 1.3 mg/dL 11/25/2024 12:59 PM EDT [facility] ALT 23 <=41 U/L 11/25/2024 12:59 PM EDT [facility] AST 26 <=40 U/L 11/25/2024 12:59 PM EDT [facility] Alk Phos 53 36 - 123 U/L 11/25/2024 12:59 PM EDT [facility] eGFR (CKD-EPIcr 2020) 98 >=60 mL/min/1.7 3 m2 11/25/2024 12:59 PM EDT [facility] Comment:Estimated GFR was ca lculated using the CKD-EPIcr (2020) equation refit without race. The equation is recommended by the National Kidney Foundation - [place] [employer] of Nephrology Task Force. Blood VENOUS BLOOD / Unknown Venipuncture / Unknown 11/25/2024 11:55 AM EDT 11/25/2024 11:55 AM EDT us Alexandr Arboleda MD CHEMISTRY ORDERABLES Final Re sult [facility] [address] [facility] [facility] , [place] [address] * (ABNORMAL) CBC WITH DIFF (11/25/2024 11:55 AM EDT) WBC 4.6 3.7 - 10.3 x10(3)/mcL 11/25/2024 12:41 PM EDT [facility] RBC 3.66(L) 3.90 - 5.20 x10(6)/mcL 11/25/2024 12:41 PM EDT [facility] Hgb 12.2 11.2 - 15.7 g/dL 11/25/2024 12:41 PM EDT [facility] Hct 38.1 34.0 - 45.0 % 11/25/2024 12:41 PM EDT [facility] MCV 104.1(H) 80.0 - 100.0 fL 11/25/2024 12:41 PM EDT [facility] MCH 33.3 26.0 - 34.0 pg 11/25/2024 12:41 PM EDT [facility] MCHC 32.0 30.7 - 35.5 g/dL 11/25/2024 12:41 PM EDT [facility] RDW 13.1 <=14.9 % 11/25/2024 12:41 PM EDT [facility] Platelet 213 155 - 369 x10(3)/mcL 11/25/2024 12:41 PM EDT [facility] MPV 9.4 8.8 - 12.5 fL 11/25/2024 12:41 PM EDT [facility] Neut Percent 47.9 % 11/25/2024 12:41 PM EDT [facility] Comment:Neutrophils equals s egs plus bands Imm Gran% 0.2 % 11/25/2024 12:41 PM EDT [facility] Comment:Automated count of m etamyelocytes, myelocytes and promyelocytes. Lymph Percent 33.4 % 11/25/2024 12:41 PM EDT [facility] [place] Percent 14.5 % 11/25/2024 12:41 PM EDT [facility] Eos Percent 2.9 % 11/25/2024 12:41 PM EDT [facility] Baso Percent 1.1 % 11/25/2024 12:41 PM EDT [facility] Neut # 2.2 1.6 - 6.1 x10(3)/mcL 11/25/2024 12:41 PM EDT [facility] Comment:Neutrophils equals s egs plus bands IMMGRAN# 0.0 0.0 - 0.1 x10(3)/mcL 11/25/2024 12:41 PM EDT [facility] Comment:Automated count of m etamyelocytes, myelocytes and promyelocytes. An absolute IG <0.1 is reported as 0.0. Lymph # 1.5 1.2 - 3.9 x10(3)/mcL 11/25/2024 12:41 PM EDT [facility] [place] # 0.7 0.3 - 0.9 x10(3)/mcL 11/25/2024 12:41 PM EDT [facility] Eos# 0.1 0.0 - 0.5 x10(3)/mcL 11/25/2024 12:41 PM EDT [facility] Baso # 0.1 0.0 - 0.1 x10(3)/mcL 11/25/2024 12:41 PM EDT [facility] Blood VENOUS BLOOD / Unknown Venipuncture / Unknown 11/25/2024 11:55 AM EDT 11/25/2024 11:55 AM EDT us Alexandr Arboleda MD HEMATOLOGY ORDERABLES Final R esult [facility] [address] [facility] , [address] [place] [phone] documented in this encounter Visit Diagnoses Diagnosis [...] therapeutic drug monitoring documented in this encounter Orders Lab Orders Without Results Count Last Ordered D ate First Ordered Date C-REACTIVE PROTEIN 2 11/25/2024 CBC WITH DIFF 2 11/25/2024 COMPREHENSIVE METABOLIC PANEL 2 11/25/2024 SEDIMENTATION RATE AUTOMATED 2 11/25/2024 documented in this encounter Additional Health Concerns Assessment Noted Time A fall risk assessment has been complete d for the patient 12/02/2018 1:25 PM EDT documented as of this encounter Care Teams Substance Abuse Rn Relationship Specialty Start Date End Date Venkatesh Lan MD [address] [place] [address] PCP - General 09/07/09 Alexandr Arboleda MD [address] [place] [id number] Internal Medicine-Rheumatology 03/10/14 documented as of this encounter
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
--- OUTSIDE RECORDS SUMMARY | 2024-12-02 10:45 | XMS_ITS | Encounter Summary ---
Author Organization [facility] [place] [address] Care Team Providers Care Laborer Pole Crew Name Role Phone Venkatesh Lan MD Primary Care Provider Alexandr Arboleda MD Unavailable [phone] Reason for Referral * Interventional Radiology (Routine) - Pending Review Specialty Diagnoses / Procedures Referred By Contsusanne t Referred To Contact Radiology Diagnoses Cervical radiculitis Procedures IR CERVICAL/THORACIC RIP WITH GUIDANCE Lucinda Contreras APRN [address] [place] [address] Phone: tel: fax: Referral ID Status Reason Start Date Expiration Date V isits Requested Visits Authorized [id number] Pending Review 12/02/2024 12/02/2025 1 1 Reason for Visit * Reason Comments Neck Pain Follow-up Encounter Details Date Type Department Care Team (Late st Contact Info) Description 12/02/2024 11:45 AM EDT Office Visit [facility] [address] [place] [address] Lucinda Contreras APRN [address] [id number] Cervical radiculitis (Primary Dx); DDD (degenerative disc disease), cervical; Spondylosis of cervical region 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 radiculopathy; Foraminal stenosis of cervical region Social History Tobacco Use Types Packs/Day Years Used Date Smoking Tobacco: Never Smokeless Tobacco: Never Tobacco Cessation:Counseling Given: Not Answered Alcohol Use Standard Drinks/Week Comments Not Currently [...] Sign Reading Time Taken Comments Blood Pressure - - Pulse 58 12/02/2024 11:35 AM EDT Temperature - - Respiratory Rate - - Oxygen Saturation 93% 12/02/2024 11:35 AM EDT Inhaled Oxygen Concentration - - Weight 59.4 kg (131 lb) 12/02/2024 11:35 AM EDT Height - - Body Mass Index 21.8 10/21/2024 2:17 PM EDT documented in this encounter Progress Notes * Lucinda Contreras APRN - 12/02/2024 11:45 AM EDT Images from the original note were not included. Subjective Subjective: Patient ID: Tran Conley is a 78 y.o. female who presents today for Chief Complaint Patient presents with Neck Pain Follow-up HPI: The patient is a 78-year-old female who presents for follow-up evaluation regarding their pain. Sheis on Xarelto and Eliquis. Symptoms are gradually improving since last visit. Since last visit, thepatient underwent Cervical epidural steroid injection. The patient reports 80% relief of pain following the procedure. Pain relief is ongoing. Overall reports good relief. Does have intermittent pains shooting down the right side that are tolerable. Had steroid injections in bilateral knees with Ortho last week. Can repeat cervical RIP as needed after 3 months. She would like to plan on repeatingafter 3 months to help get her through the holidays. Characterization of Primary Pain: Location of Pain: Neck - bilateral Pain Ratin/10 on NRS Quality: aching, shooting, and tingling Temporal Profile: constant with intermittent exacerbations Referral Pattern: Pain radiates down the right arm Exacerbating Factors: increased activity, turning head, and looking up Relieving Factors: rest, medications, and injections Associated Symptoms: Patient denies any red flag symptoms such as urinary/bowel incontinence, progressive weakness in the extremities, and/or saddle anesthesia. Review of Systems Constitutional: Negative for activity change and appetite change. HENT: Negative for hearing loss and tinnitus. Eyes: Negative for photophobia and visual disturbance. Respiratory: Negative for chest tightness and shortness of breath. Cardiovascular: Negative for chest pain and palpitations. Gastrointestinal: Negative for abdominal pain and constipation. Endocrine: Negative for cold intolerance and heat intolerance. Musculoskeletal: Positive for myalgias and neck pain. Skin: Negative for rash. Neurological: Negative for seizures, weakness and headaches. Psychiatric/Behavioral: Negative for agitation, behavioral problems and dysphoric mood. All other systems reviewed and are negative. Patients past medical, surgical, family and social histories were reviewed and updated. There were no changes except as noted. Objective Objective: Vitals: 12/02/24 1135 Pulse: 58 SpO2: 93% Weight: 131 lb (59.4 kg) Body mass index is 21.8 kg/m??. Physical Exam Constitutional: General: She is not in acute distress. Appearance: Normal appearance. She is well-developed. HENT: Head: Normocephalic and atraumatic. Right Ear: External ear normal. Left Ear: External ear normal. Mouth/Throat: Lips: [place]. Eyes: General: Lids are normal. Cardiovascular: Comments: No cyanosis noted Pulmonary: Effort: Pulmonary effort is normal. No respiratory distress. Abdominal: General: There is no distension. Musculoskeletal: Cervical back: Normal range of motion. Back: Skin: Findings: No rash. Neurological: Mental Status: She is alert and oriented to person, place, and time. Psychiatric: Attention and Perception: Attention normal. Mood and Affect: Mood normal. Speech: Speech normal. Behavior: Behavior normal. Thought Content: Thought content normal. Physical Exam Image Review: Results for orders placed during the hospital encounter of 05/14/18 MRI LUMBAR SPINE WO CONTRAST Narrative MRI LUMBAR SPINE WITHOUT CONTRAST, 05/14/2018. CLINICAL HISTORY: M51.17-Intervertebral disc disorders with radiculopathy, lumbosacral [id number] COMPARISON: MRI lumbar spine 09/11/2012. TECHNIQUE: Multiplanar, multisequence MR images of the lumbar spine were obtained without the use of contrast. FINDINGS: BONES & MARROW: Numbering is maintained consistent with the previous MRI report. 5 lumbar type vertebral bodies are described with a sacralized L5 segment. Degenerative changes are again noted at the right lumbosacral pseudoarticulation. Please correlate with the numbering in this report and radiographic imaging prior to any intervention. There is no compression fracture. Minimal degenerative anterolisthesis is noted at L4-L5. There is no pars defect. Oblique images of the sacrum shows no evidence of insufficiency injury. Moderate bilateral SI joint osteoarthrosis is present, right greater than left. CORD: The conus terminates at a normal level and the visualized spinal cord is normal signal. Callahan findings by level are as follows: At T10-T11 (series 8, image 4), disc degeneration includes central disc bulge. There is effacement of ventral CSF margin indentation of the cord. Minimal left foraminal encroachment is noted. At T11-12 and T12-L1, there is signal alteration and no posterior disc protrusion, disc effacement, or foraminal encroachment. Mild facet degeneration is present. At L1-L2 (axial series 8, image 23), there is mild disc bulge and moderate facet arthropathy. There is no central canal or foraminal narrowing. At L2-L3 (axial series 8, image 29), there is more pronounced disc bulge and moderate facet arthropathy. On the right, there is ligamentous cystic change measuring the range of 0.7 cm encroaching on the right lateral recess space. Dorsal epidural fat deposition is prominent. The central canal and foraminal encroachment is progressive from the previous study. At L3-L4 (axial series 9, image 5), there is disc bulge and moderate to advanced facet arthropathy. There is moderate right and mild left foraminal encroachment, and no lateral recess impingement. At L4-L5, there is disc uncovering/bulge, eccentric within the right greater and left foramina. Advanced facet arthropathy is present. There is moderate right and mild left distal foraminal encroachment. There is crowding of the right lateral recess space without traversing nerve root impingement. Right femoral narrowing is grossly unchanged from prior. At the transitional L5-S1 level (axial series 9, image 17), there is no disc protrusion. Bilateral facet arthropathy is present. There is no central canal or foraminal encroachment. Impression : 1. Transitional lumbosacral anatomy as described above. Please correlate with imaging prior to any intervention. 2. At L2-L3, there is generalized disc bulge and moderate facet arthropathy. Right facet joint ligamentous cystic changes is noted measuring the range of 0.7 cm. There is resulting encroachment of the right lateral recess space. Please correlate with right L3 symptoms. 3. At L3-L4, there is generalized disc bulge, eccentric in the right foramen. Moderate right foraminal encroachment is present also raising consideration of L3 impingement. 4. Level by level discussion as above. 5. Moderate bilateral SI joint osteoarthrosis, right greater than left. No results found for this or any previous visit. Results for orders placed during the hospital encounter of 09/23/24 MRI CERVICAL SPINE WO CONTRAST Narrative MR CERVICAL SPINE WITHOUT CONTRAST, 09/23/2024 4:23 PM CLINICAL HISTORY: M47.812-Spondylosis 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 radiculopathy, cervical [id number]-CM M54.12-Radiculopathy, cervical [id number]-CM. COMPARISON: None. PROCEDURE COMMENTS: Multiplanar multiecho MR imaging of the cervical spine per protocol. FINDINGS: There is no fracture or marrow replacing process. Degenerative endplate edema changes at C5-6 are noted. Cervical cord appears normal signal intensity. Areas of canal stenosis and cord flattening inferiorly which will be further discussed below. Paravertebral soft tissues are normal. Level by level analysis: C2-C3: Moderate bilateral facet arthritis. Shallow disc osteophyte complex. Mild thecal sac effacement without foraminal narrowing. C3-C4: Severe left and right sided facet arthritis. Disc osteophyte complex. There is thecal sac effacement touching the cord without cord flattening, severe left and [id number] right foraminal narrowing. C4-C5: Severe right and moderate to severe left facet arthritis. Shallow disc osteophyte complex. Disc material touches the cord without cord compression, contributing to moderate bilateral foraminal narrowing. C5-C6: Disc osteophyte complex and severe right, moderate left facet disease. 1 mm retrolisthesis at this level. There is canal stenosis with mild to moderate cord flattening, severe right and moderate to severe left foraminal stenosis. C6-C7: Moderate bilateral facet disease. Disc osteophyte complex. Moderate canal stenosis with mild to moderate cord flattening, moderate to severe bilateral foraminal stenosis. C7-T1: Severe facet disease. 1 mm anterolisthesis and shallow disc osteophyte complex. Mild thecal sac effacement without foraminal narrowing. Comment:No significant additional finding. Impression 1. Multilevel cervical spondylosis and facet arthritis as described above. At C5-6 and C6-7, disc osteophyte complexes and facet arthritis contribute to moderate canal stenosis with moderate cord flattening. No cord edema or myelomalacia. 2. Multilevel foraminal stenosis, severe on the left at C3-4, severe on the right and moderate to severe on the left at C5-6, moderate to severe bilaterally at C6-7. See the above detailed level by level discussion. - Note: Radiology results need to be interpreted within a comprehensive clinical context. If you have questions about the radiology report, please contact the office of the ordering clinician. No results found for this or any previous visit. No results found for this or any previous visit. 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 PROCEDURE COMMENTS: Minimum of 5 views of the cervical spine, including PA, lateral, odontoid, and bilateral oblique positioning. FINDINGS: No fracture or evidence of traumatic malalignment. Soft tissues unremarkable. There is multilevel degenerative change, radiographically most pronounced at C5-C6 and C6-C7. Uncovertebral spurring causes bony foraminal narrowing bilaterally. Impression : Multilevel cervical degenerative changes, most pronounced at C5-C6 and C6-C7 levels. - Note: Radiology results need to be interpreted within a comprehensive clinical context. If you have questions about the radiology report, please contact the office of the ordering clinician. Prescription Monitoring Program: AUTOMATIC SPREADER OPERATOR/DONN and most recent UDS reviewed on 12/02/2024 as available. . 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 - We discussed that she will continue Physical Therapy/Home Exercise Program for at least 4-6 weeksprior to re-evaluation. - Return for F/U injection. Lucinda Contreras APRN Interventional Pain Management [facility] documented in this encounter Miscellaneous Notes * Patient Instructions - Lucinda Contreras APRN - 12/02/2024 11:45 AM EDT Epidural Steroid Injection An epidural steroid injection is given to relieve pain in the neck, back, or legs. This procedure involves injecting a steroid and a local anesthetic (drug that causes local numbness) into the epidural space. The epidural space is the space between the outer covering of the spinal cord (the cord ofnerve tissue that extends from the brain) and the vertebra (bone of the spinal column). The epidural steroid injection helps in reducing the pain that is caused by the irritation/swelling of the nerve root. However, it does not cure the underlying problem. The injection may be given for the following conditions: ?? Changes in the disk (a soft, gel-like cushion between two vertebrae) due to wear and tear. ?? A reduction in the space within the spinal canal. ?? Slipped disk. ?? Lumbar (low back) sprain. ?? Sciatica (shooting pain that radiates down the buttocks and the back of the leg due to compression of the nerve). ?? Fracture or weakness of the vertebra. ?? Pain that develops after a surgery of the spine. ?? Pain that arises after an attack of shingles (viral infection affecting the nerves). BEFORE THE PROCEDURE The caregiver may ask about your symptoms, do a detailed exam, and advise some tests. These tests may include imaging studies. Your caregiver may review the results of your tests and discuss the procedure with you. You may be advised to stop taking blood-thinning medicines a few days before the procedure. LET YOUR CAREGIVER KNOW ABOUT: ?? Any infection that you may have. ?? Any other disease or condition. ?? Allergies. ?? High blood pressure. ?? Medicines that you are already taking, especially blood thinners. ?? Bleeding or blood problems. ?? , if applicable. PROCEDURE You may remain awake during the whole procedure. You may be asked to lie on your stomach. The site of the injection is cleansed. Then, the injection site is numbed using a local anesthetic. A hollow needle is directed through your skin into the epidural space with the help of a special x-ray. The x-ray helps to ensure that the steroid is delivered closest to the affected nerve. You may have some minimal discomfort at this time. Once the needle is in the right position, the local anesthetic and the steroid are injected into the epidural space. The needle is then removed. The skin is cleaned and a bandage is applied. The entire procedure takes only a few minutes, although repeated injections may be required. RISKS & COMPLICATIONS OF THE PROCEDURE The complications due to the needle insertion are: ?? Headache. ?? Bleeding. ?? Infection. ?? Allergic reaction. ?? Damage to the nerves. The complications due to the steroid are: ?? Weight gain. ?? Hot flushes. ?? Mood swings. ?? Lack of sleep. ?? Increase in blood sugar levels. ?? Retention of water. The response to this procedure depends on the underlying cause of the pain and its duration. AFTER THE PROCEDURE ?? You may be monitored for a short time before you go home. ?? You may feel weakness or numbness in your arm/leg, which disappears within 1- 2 hours. ?? Someone should drive you home. ?? You may be allowed to eat, drink, and take your regular medicine. ?? Your pain may improve or worsen immediately after the procedure. ?? You may feel the beneficial effect of the steroid a few days later. ?? You may have soreness at the site of the injection. ?? If you have only partial relief of the pain, the injection may be repeated once or even twice within 4-8 weeks of the initial injection. HOME CARE INSTRUCTIONS ?? Avoid the use of heat on the injection site for a day. ?? Do not have a tub bath or soak in water for the rest of that day. ?? Remove the bandage on the next day. ?? Resume your normal activities on the next day. ?? Use ice packs or mild painkillers to reduce the soreness around the injection site. SEEK MEDICAL CARE IF: ?? You develop fever (more than 100.5??F (38.1??C)). ?? You continue to have pain and soreness over the injection site even after taking medicines. SEEK IMMEDIATE MEDICAL CARE IF: ?? You have severe back pain, which is not relieved by medications. ?? You develop severe headache. ?? You develop any new numbness or weakness of your legs. ?? You lose control over your bladder/bowel movements. ?? You develop fever more than 102??F (38.9 ?? C). Document Released: 04/30/2008 Document Re-Released: 10/31/2008 ExitCare?? Patient Information ??2009 [employer]. documented in this encounter Plan of Treatment Upcoming Encounters Date Type Department Care Team (Late st Contact Info) Description 12/17/2024 1:45 PM EST [facility] [address] [address] Kory Garcia MD [address] [place] [phone] 12/29/2024 1:00 PM EST Office Visit [address] [id number] 01/07/2025 11:00 AM EST Office Visit [facility] [address] [place], [place] [id number] Greg Stringer PA-C [address] [place] [address] 01/23/2025 10:30 AM EST Appointment [facility] [address] [facility] [address] 4[address] [place] [id number] Lucinda Contreras, ORANGE PICKER [address] [place] [address] 03/03/2025 11:45 AM EST Office Visit [facility] [address] [place] [address] Lucinda Contreras, ORANGE PICKER [address] [place] [address] 03/24/2025 3:00 PM EST Office Visit [facility] [address] [facility] [address] [place], [place] [id number] Alexandr Arboleda MD [address] [facility] [address] [place], [place] [id number] 03/31/2025 10:45 AM EST Office Visit [facility] [address] [place] [address] Carl Rivera MD [address] [place] [address] Scheduled Orders Name Type Priority Associated Diagnoses Orde r Schedule IR CERVICAL/THORACIC RIP WITH GUIDANCE Imaging Routine Cervical radiculitis 1 Occurrences starting 12/02/2024 until 06/04/2025 documented as of this encounter Visit Diagnoses Diagnosis Cervical radiculitis- Primary Brachial neuritis or radiculitis nos DDD (degenerative disc disease), cervical Degeneration of cervical intervertebral disc Spondylosis of cervical region 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 radiculopathy Cervical spondylosis without myelopathy Foraminal stenosis of cervical region Spinal stenosis in cervical region documented in this encounter Additional Health Concerns Assessment Noted Time A fall risk assessment has been complete d for the patient 12/02/2018 1:25 PM EDT documented as of this encounter Care Teams Laborer Pole Crew Relationship Specialty Start Date End Date Venkatesh Lan MD [address] [place] [address] PCP - General 09/07/09 Alexandr Arboleda MD [address] [address] Internal Medicine-Rheumatology 03/10/14 documented as of this encounter
--- NOTE | 2024-12-10 13:15 | CA_ITS ---
APPROVED REPORT EXAM: Comprehensive 2D, Doppler, and color-flow Echocardiogram Hotbed Lever Operator: Catina Baker RVT Ht: 5 ft 4 in Wt: 129lbs BSA: 1.62 BP: 141/69 mmHg Indications: LV FUNCTION,CHEST PAIN 2D Dimensions LA Volume 50.30 mL LA Volume Index 31.05 mL/m2 (M/F) 16-34 M-Mode Dimensions RVDd 2.47 cm (0.9-2.6) LA Diam 4.29 cm (1.9-4.0) LVDd 5.26 cm (3.5-5.7) LVDs 3.29 cm (3.5-5.7) IVSd 0.54 cm (0.6-1.1) PWd 0.64 cm (0.6-1.1) EF (Teich) 67.10% FS 37.50% EDV (Teich) 133.00 mL TAPSE 2.40 (<1.7) ESV (Teich) 43.80 mL LV Diastology E Decel Time 217 (160-240 msec) E/A Ratio 0.7 Aortic Valve LYDIA Index 1.28 cm2/m2 AoV Peak James. 152.0 (50-130 cm/s) AI PHT 854.00 ms AO Peak GR. 9.30 mmHg AO Mean GR. 5.00 (<5 mmHg) AO VTI 31.9 (18-25 cm) LYDIA (VTI) 2.12 (2.5-4.5 cm2) Mitral Valve MV E Max James. 72.0 (40-130 cm/s) MV A Velocity 104.0 (40-130 cm/s) E/A Ratio 0.69 MV PHT 63.0 ms Pulmonary Valve PV Peak Velocity 75.0 (50-150 cm/s) Tricuspid Valve TR P. Velocity 267.00 cm/s RAP Estimate 8.00 mmHg RVSP 36.40 mmHg Left Ventricle The left ventricle is normal size. Left ventricular systolic function is normal. The left ventricular ejection fraction is within the normal range. There is increased left ventricular wall thickness. There is normal LV segmental wall motion. Transmitral Doppler flow pattern suggests impaired LV relaxation. LVEF is 60% Right Ventricle The right ventricle is mildly dilated. The right ventricular systolic function is normal. Atria The left atrium is mildly dilated. The right atrium is mildly dilated. There is no color Doppler evidence of interatrial shunt. Aortic Valve The aortic valve is mildly thickened. There is no hemodynamically significant aortic valvular stenosis. Mild aortic regurgitation is present. Mitral Valve The mitral valve is normal in structure. No evidence of mitral valve stenosis. Mild mitral regurgitation is present. Tricuspid Valve The tricuspid valve leaflets are thin and pliable. Mild tricuspid regurgitation. RVSP is 25-30 mmHg. Pulmonic Valve The pulmonary valve is grossly normal in structure. Mild pulmonic valve regurgitation is present. Great Vessels The aortic root is normal in size. IVC is normal in size and collapses >50% with inspiration. Pericardium There is no pericardial effusion. Other Information Study Quality: Fair Conclusion Normal biventricular systolic function. Mild RV dilation. Mild biatrial dilation. Mild AI, mild MR, mild TR, mild PI. Electronically signed by : Marcia Thompson MD 12/11/2024 12:54:07
--- OUTSIDE RECORDS SUMMARY | 2024-12-10 13:34 | XMS_ITS | Encounter Summary ---
Author Organization [place] [address] Care Team Providers Care Silviculture Professor Name Role Phone Venkatesh Lan MD Primary Care Provider Alexandr Arboleda MD Unavailable Encounter Details Date Type Department Care Team (Late st Contact Info) Description 04/07/2014 Orders Only [facility] [address] [facility] [address] [place] [address] Carlos A Antony MD [address] [place] [address] Social History Tobacco Use Types Packs/Day Years Used Date Smoking Tobacco: Never Smokeless Tobacco: Never Alcohol Use Standard Drinks/Week Comments Yes 0 (1 standard drink = 0.6 oz pur e alcohol) 7-8 per wk Comments No Sex and Gender Information Value Date Recorded Sex Assigned at Not on file Legal Sex Female 11:51 PM EDT Gender Identity Not on file Sexual Orientation Not on file documented as of this encounter Plan of Treatment Upcoming Encounters Date Type Department Care Team (Late st Contact Info) Description 12/17/2024 1:45 PM EST [facility] [address] [place] [address] Kory Garcia MD [address] [place] [address] 12/29/2024 1:00 PM EST Office Visit [address] [id number] 01/07/2025 11:00 AM EST Office Visit [address] [id number] Greg Stringer PA-C [address] [place], [place] [id number] 01/23/2025 10:30 AM EST Appointment [facility] [address] [facility] [address] [place] [address] Lucinda Contreras, PHOTOGRAPHIC DEVELOPER AND PRINTER [address] [place] [address] 03/03/2025 11:45 AM EST Office Visit [facility] [address] [facility] [place] [address] Lucinda Contreras, PHOTOGRAPHIC DEVELOPER AND PRINTER [address] [place], [place] [id number] 03/24/2025 3:00 PM EST Office Visit [facility] [address] [facility] [address] [place], [place] [id number] Alexandr Arboleda MD [address] [facility] [address] [place], [place] [id number] 03/31/2025 10:45 AM EST Office Visit [facility] [address] [place] [address] Carl Rivera MD [address] [place] [address] documented as of this encounter Procedures Procedure Name Priority Date/Time Associated Diagnosis Comments [facility] EGD Routine 04/07/2014 9:30 AM EST documented in this encounter Results * [facility] EGD (04/07/2014 9:30 AM EST) 04/07/2014 9:30 AM EST Impressions [facility] - 04/07/2014 10:05 AM EST Normal duodenum. Hiatal Hernia. Normal mucosa in the whole stomach. (Biopsy). Normal mucosa in the whole esophagus. (Biopsy). Plan: Follow-up as needed This section is an excerpt of the full report. us Carlos A Antony MD GI PROCEDURE ORDERABLES Fin al Result [facility] [address] [place] [address] documented in this encounter Visit Diagnoses Not on filedocumented in this encounter Care Teams Silviculture Professor Relationship Specialty Start Date End Date Venkatesh Lan MD [address] [place] [address] PCP - General 09/07/09 Alexandr Arboleda MD [address] [place] [address] Internal Medicine-Rheumatology 03/10/14 documented as of this encounter
--- OUTSIDE RECORDS SUMMARY | 2024-12-10 13:34 | XMS_ITS | Clinical Summary ---
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 severe right, moderate left facetdisease. 1 mm retrolisthesis at this level. There is canal stenosis with mild tomoderate cord flattening, severe right and moderate to severe left foraminalstenosis. C6-C7: Moderate bilateral facet disease. Disc osteophyte complex.Moderate canal stenosis with mild to moderate cord flattening, moderate to severe bilateral foraminal stenosis. C7-T1: Severe facet disease. 1 mm anterolisthesis and shallow discosteophyte complex. Mild thecal sac effacement without foraminal narrowing. Comment:No significant additional finding. IMPRESSION: 1. Multilevel cervical spondylosis and facet arthritis as describedabove. At C5-6 and C6-7, disc osteophyte complexes and facet arthritis contributeto moderate canal stenosis with moderate cord flattening. No cord edema or myelomalacia. 2. Multilevel foraminal stenosis, severe on the left at C3-4, severe onthe right and moderate to severe on the left at C5-6, moderate to severebilaterally at C6-7. See the above detailed level by level discussion. - Note: Radiology results need to be interpreted within a comprehensiveclinical context. If you have questions about the radiology report, please contactthe office of the ordering clinician. Javi Coy MD IMG MRI ORDERABLES Fin al Result * HEPATITIS C ANTIBODY IGM + IGG (05/02/2021 12:17 PM EDT) Hep C Ab Non-Reactiv e Non-Reacti ve 05/02/2021 2:21 PM EDT [facility] Blood Venipuncture / Unknown 05/02/2021 12:17 PM EDT 05/02/2021 12:17 PM EDT Alexandr Arboleda MD IMMUNOLOGY ORDERABLES Final R esult [facility] 1 [facility] , [address] [place] [address] * GMED EGD-COLONOSCOPY (10/25/2020 1:40 PM EDT) 10/25/2020 1:40 PM EDT Impressions [facility] - 10/25/2020 1:57 PM EDT Plan: Follow-up as needed This section is an excerpt of the full report. Carlos A Antony MD GI PROCEDURE ORDERABLES Fin al Result [facility] 1 [place] [address] from Last 3 Months or Most Recently Relevant to Health Maintenance Insurance [employer] MEDICARE PPO MR [employer] MEDICARE PPO MR [employer] MEDICARE PPO MR [facility] MEDICARE PPO MR Care Teams Manager Golf Relationship Specialty Start Date End Date Venkatesh Lan MD [address] [place] [address] PCP - General 09/07/09 Alexandr Arboleda MD [address] [address] Internal Medicine-Rheumatology 03/10/14
--- OUTSIDE RECORDS SUMMARY | 2024-12-10 13:34 | XMS_ITS | Clinical Summary ---
Author Organization [facility] Address [address] [place] [address] Care Team Providers Care Decal Maker Name Role Phone Unknown, Attending Provider Primary Care Provide r Unavailable Source Comments This information has been disclosed to you from confidential records protectedfrom disclosure by state law. You shall make no further disclosure of thisinformation without the specific, written, and informed release of theindividual to whom it pertains, or as otherwise permitted by law. A generalauthorization for the release of medical or other information is not sufficientfor the purposes of therelease of HIV test results or diagnoses. [id number] Allergies No known active allergies Social History Tobacco Use Types Packs/Day Years Used Date Smoking Tobacco: Never Assessed Comments Unknown Sex and Gender Information Value Date Recorded Sex Assigned at Not on file Legal Sex Female 11:18 AM EDT Gender Identity Not on file Sexual Orientation Not on file Last Filed Vital Signs Vital Sign Reading Time Taken Comments Blood Pressure 138/69 10/26/2022 2:43 PM EDT Pulse 62 10/26/2022 2:43 PM EDT Temperature 36.6 C (97.8 F) 10/26/2022 2:43 PM EDT Respiratory Rate 12 10/26/2022 2:43 PM EDT Oxygen Saturation 100% 10/26/2022 2:43 PM EDT Inhaled Oxygen Concentration 100% 10/26/2022 2 :43 PM EDT Weight - - Height - - Body Mass Index - - Plan of Treatment Health Maintenance Due Date Last Done Comments Alcohol Misuse Screening 1962 Depression Screening 1963 Immunization: Pneumococcal ( 1 of 1 - PCV) 1994 Osteoporosis Screening (DXA Scan) 1994 Immunization: RSV (Adult) (1 - 1-dose 75+ series) 12/29/2019 Immunization: COVID-19 ( season) 2024 12/05/2021, 12/11/2020, 04/09/2020, Additional history exists Immunization: Influenza (MyC coleman) (#1) 2024 11/10/2020, 11/19/2018, 11/20/2017, Additional history exists Immunization: DTaP/Tdap/Td ( 2 - Td or Tdap) 10/02/2029 10/03/2019 Immunization: Zoster Completed 02/18/2019, 09/05/19 19 Insurance [employer] CHOICE PPO MEDICARE LIABILITY Member Subscriber Plan / Payer (Ef fective 2022-Present) Name:YennyLinette suárezlennie Dickerson Relation to Subscriber:Self Name:Yael Tran F Payer ID:[id number] Type:Indemnity Address: [address] [place] [address] Care Teams Decal Maker Relationship Specialty Start Date End Date Unknown, Attending Provider PCP - General 10/26/22
--- OUTSIDE RECORDS SUMMARY | 2024-12-10 13:34 | XMS_ITS | Encounter Summary ---
Author Organization [facility] Address [address] [place] [address] Care Team Providers Care Ice Seller Name Role Phone Venkatesh Lan MD Primary Care Provider Alexandr Arboleda MD Unavailable [phone] Encounter Details Date Type Department Care Team (Late st Contact Info) Description 12/08/2024 [place] [address] Kory Garcia MD [address] [place] [phone] Trigger thumb, right thumb (Primary Dx) Social [...] Refills Last Filled Start Date End Date cephALEXin (KEFLEX) 500 mg Oral CapsuleIndications :Trigger thumb, right thumb Take 1 Capsule by mouth 4 times daily for 3 days. Take 1 capsule by mouth 4 times daily for 3 days, starting with one pill the night before the procedure. 13 Capsule 12/08/2024 documented in this encounter Plan of Treatment Upcoming Encounters Date Type Department Care Team (Late st Contact Info) Description 12/17/2024 1:45 PM EST Office Visit [facility] [address] [place] [address] Kory Garcia MD [address] [place] [address] 12/29/2024 1:00 PM EST Office Visit [address] [id number] 01/07/2025 11:00 AM EST Office Visit [address] [id number] Greg Stringer PA-C [address] [place] [address] 01/23/2025 10:30 AM EST Appointment [facility] [address] [facility] Building 1 D 4th Floor - [address] [place] [address] Lucinda Contreras, PROBATION OFFICER [address] [place] [address] 03/03/2025 11:45 AM EST Office Visit [facility] [address] [place] [address] Lucinda Contreras PROBATION OFFICER [address] [place] [address] 03/24/2025 3:00 PM EST Office Visit [facility] [address] [facility] [address] [place], [place] [phone] Alexandr Arboleda MD 651 [facility] Building 19 [place], [place] [address] 03/31/2025 10:45 AM EST Office Visit [facility] [address] [place] [address] Carl Rivera MD [address] [place] [address] documented as of this encounter Visit Diagnoses Diagnosis Trigger thumb, right thumb- Primary documented in this encounter Additional Health Concerns Assessment Noted Time A fall risk assessment has been complete d for the patient 12/02/2018 1:25 PM EDT documented as of this encounter Care Teams Ice Seller Relationship Specialty Start Date End Date Venkatesh Lan MD [address] [place] [address] PCP - General 09/07/09 Alexandr Arboleda MD [address] [address] Internal Medicine-Rheumatology 03/10/14 documented as of this encounter
--- OUTSIDE RECORDS SUMMARY | 2024-12-10 13:34 | XMS_ITS | Encounter Summary ---
Author Organization [place] [address] Care Team Providers Care Drawbridge Operator Name Role Phone Venkatesh Lan MD Primary Care Provider Alexandr Arboleda MD Unavailable [phone] Encounter Details Date Type Department Care Team (Late st Contact Info) Description 01/04/2012 Orders Only [facility] 651 [facility] [address] [place] [address] Carlos A Antony MD [address] [place] [address] Social History Tobacco Use Types Packs/Day Years [...] Description 12/17/2024 1:45 PM EST [facility] [address] [place] [address] Kory Garcia MD [address] [place] [address] 12/29/2024 1:00 PM EST Office Visit [address] [phone] 01/07/2025 11:00 AM EST Office Visit [address] [phone] Greg Stringer PA-C [address] [id number] 01/23/2025 10:30 AM EST Appointment [facility] 4900 [facility] 1 D 4th Floor [address] [place] [address] Lucinda Contreras, [employer] LEVERMAN [address] [place] [address] 03/03/2025 11:45 AM EST Office Visit [facility] [address] [facility] [address] Lucinda Contreras, [employer] LEVERMAN [address] [place], [place] [address] 03/24/2025 3:00 PM EST Office Visit [facility] [address] [facility] [address] [place], [place] [address] Alexandr Arboleda MD 651 [facility] Building [address] [place], [place] [id number] 03/31/2025 10:45 AM EST Office Visit [facility] [address] [place] [address] Carl Rivera MD [address] [place] [address] documented as of this encounter Procedures Procedure Name Priority Date/Time Associated Diagnosis Comments GMED EGD Routine 01/04/2012 12:00 AM EST documented in this encounter Results * GMED EGD (01/04/2012 12:00 AM EST) 01/04/2012 Impressions [facility] - 01/04/2012 11:20 AM EST Small hiatal hernia (dilation) Otherwise normal EGD to second part of the duodenum Narrative [facility] - 01/04/2012 11:20 AM EST Performing Provider: Carlos A Antony M.D. Referring Provider: Venkatesh Lan MD us Carlos A Antony MD GI PROCEDURE ORDERABLES Fin al Result [place] [address] [facility] [address] [address] documented in this encounter Visit Diagnoses Not on filedocumented in this encounter Care Teams Drawbridge Operator Relationship Specialty Start Date End Date Venkatesh Lan MD [address] [place] [address] PCP - General 09/07/09 Alexandr Arboleda MD 651 [facility] Building [address] [place] [address] Internal Medicine-Rheumatology 03/10/14 documented as of this encounter
--- OUTSIDE RECORDS SUMMARY | 2024-12-10 13:34 | XMS_ITS | Encounter Summary ---
Author [place] [address] Care Team Providers Care Foundation Drill Operator Helper Name Role Phone Venkatesh Lan MD Primary Care Provider Alexandr Arboleda MD Unavailable [phone] Reason for Visit * Reason Onset Date Comments Anticoagulation 12/02/2024 Xarelto Encounter Details Date Type Department Care Team (Late st Contact Info) Description 12/02/2024 Telephone [facility] [address] [place] [address] Tayler Chávez MA Anticoagulation (Xarelto) Social History Tobacco Use Types Packs/Day Years [...] on file documented as of this encounter Miscellaneous Notes * Telephone Encounter - Tayler Chávez MA - 12/05/2024 9:37 AM EDT Attempted to inform Patient to hold medication. LVM to call back. * Telephone Encounter - Sis Tubbs MA - 12/03/2024 10:32 AM EDT Images from the original note were not included. * Telephone Encounter - Tayler Chávez MA - 12/02/2024 12:06 PM EDT Xarelto clearance faxed to Dr. Hickey's Office at [phone]. * Telephone Encounter - Tayler Chávez MA - 12/02/2024 12:04 PM EDT @[facility]@ December 02, [address] Ruperto Conley 1945 [facility]. He / She will be undergoing an outpatient Spinal procedure: Epidural Steroid Injection This medication will need to be held as follows: Rivaroxaban (Xarelto) - off 3 days ( or 65 hours ) Please let our office know, as soon as possible, if you authorize the patient to hold the medicine as recommended above along with when to restart their next dose. Feel free to contact our office if you have any questions. Yes, this patient may hold the medication as directed above, and should restart days post procedure. No, this patient may NOT hold the medication. PhysicianHIMANSHU, CARLOS signature Date signed Thanks for your help in this matter, Please respond via fax back to [phone] documented in this encounter Plan of Treatment Upcoming Encounters Date Type Department Care Team (Late st Contact Info) Description 12/17/2024 1:45 PM EST Office Visit [facility] [address] [place] [address] Kory Garcia MD [address] [place] [address] 12/29/2024 1:00 PM EST Office Visit [address] [id number] 01/07/2025 11:00 AM EST Office Visit [facility] [address] [place], [place] [phone] Greg Stringer PA-C [address] [place], [place] [phone] 01/23/2025 10:30 AM EST Appointment [facility] 4900 [facility] 1 D 4th Floor - [address] [place] [address] Lucinda Contreras, WOOD TREATING INSPECTOR [address] [place] [address] 03/03/2025 11:45 AM EST Office Visit [facility] [address] [place] [address] Lucinda Contreras, WOOD TREATING INSPECTOR [address] [place], [place] [address] 03/24/2025 3:00 PM EST Office Visit [facility] [address] [facility] [address] [place], [place] [id number] Alexandr Arboleda MD [address]51 [facility] Building 19 [place], [place] [address] 03/31/2025 10:45 AM EST Office Visit [facility] [address] [place] [address] Carl Rivera MD [address] [place], [place] [phone] documented as of this encounter Visit Diagnoses Not on filedocumented in this encounter Additional Health Concerns Assessment Noted Time A fall risk assessment has been complete d for the patient 12/02/2018 1:25 PM EDT documented as of this encounter Care Teams Foundation Drill Operator Helper Relationship Specialty Start Date End Date Venkatesh Lan MD [address] [place] [address] PCP - General 09/07/09 Alexandr Arboleda MD 651 [facility] 19 [place] [address] Internal Medicine-Rheumatology 03/10/14 documented as of this encounter
--- OUTSIDE RECORDS SUMMARY | 2024-12-10 13:34 | XMS_ITS | Encounter Summary ---
Author Organization [place] [address] Care Team Providers Care Bevel Polisher Name Role Phone Venkatesh Lan MD Primary Care Provider Alexandr Arboleda MD Unavailable [phone] Encounter Details Date Type Department Care Team (Late st Contact Info) Description 10/25/2020 Orders Only [facility] 6[address] [facility] [address] [place] [id number] Carlos A Antony MD [address] [place] [address] Social History Tobacco Use Types Packs/Day Years Used Date Smoking Tobacco: Never Smokeless Tobacco: Never Alcohol Use Standard Drinks/Week Comments Yes 0 (1 standard drink = 0.6 oz pur e alcohol) 7-8 per wk Sexually Active Control Partners Comments Yes Comments No Sex and Gender Information Value Date Recorded Sex Assigned at Not on file Legal Sex Female 11:51 PM EDT Gender Identity Not on file Sexual Orientation Not on file COVID-19 Exposure Response Date Recorded In the last month, have you been in contact with someone who was confirmed or suspected to have Coronavirus / COVID-19? No / Unsure 10/20/2020 12:30 PM EDT documented as of this encounter Plan of Treatment Upcoming Encounters Date Type Department Care Team (Late st Contact Info) Description 12/17/2024 1:45 PM EST Office Visit [facility] [address] [place] [address] Kory Garcia MD [address] [place] [address] 12/29/2024 1:00 PM EST Office Visit [facility] [address] [place], [place] [address] 01/07/2025 11:00 AM EST Office Visit [address] [phone] Greg Stringer PA-C [address] [place] [address] 01/23/2025 10:30 AM EST Appointment [facility] 4900 [facility] Building 1 D 4th Floor [address] [place] [address] Lucinda Contreras, CAMERA STORAGE CLERK [address] [place] [address] 03/03/2025 11:45 AM EST Office Visit [facility] [address] [place] [address] Lucinda Contreras CAMERA STORAGE CLERK [address] [place], [place] [address] 03/24/2025 3:00 PM EST Office Visit [facility] [address] [facility] [address] [place], [place] [id number] Alexandr Arboleda MD 651 [facility] Building [address] [place], [place] [address] 03/31/2025 10:45 AM EST Office Visit [facility] [address] [place] [address] Carl Rivera MD [address] [place] [address] documented as of this encounter Procedures Procedure Name Priority Date/Time Associated Diagnosis Comments [facility]ED EGD-COLONOSCOPY Routine 10/25/2020 1:40 PM EDT documented in this encounter Results * [facility]ED EGD-COLONOSCOPY (10/25/2020 1:40 PM EDT) 10/25/2020 1:40 PM EDT Impressions [facility] - 10/25/2020 1:57 PM EDT Plan: Follow-up as needed This section is an excerpt of the full report. us Carlos A Antony MD GI PROCEDURE ORDERABLES Fin al Result [facility] [address] [place] [id number] documented in this encounter Visit Diagnoses Not on filedocumented in this encounter Additional Health Concerns Assessment Noted Time A fall risk assessment has been complete d for the patient 12/02/2018 1:25 PM EDT documented as of this encounter Care Teams Bevel Polisher Relationship Specialty Start Date End Date Venkatesh Lan MD [address] [place] [address] PCP - General 09/07/09 Alexandr Arboleda MD [address] [place] [phone] Internal Medicine-Rheumatology 03/10/14 documented as of this encounter
--- OUTSIDE RECORDS SUMMARY | 2024-12-10 13:35 | XMS_ITS | Encounter Summary ---
Author Organization [place] [address] Care Team Providers Care Validation Engineer Name Role Phone Venkatesh Lan MD Primary Care Provider Alexandr Arboleda MD Unavailable [phone] Encounter Details Date Type Department Care Team (Late st Contact Info) Description 09/24/2024 Results Follow-Up [address] [address] Javi Coy MD [address] [place] [address] MRI CERVICAL SPINE WO CONTRAST Social History Tobacco Use Types Packs/Day Years [...] Description 12/17/2024 1:45 PM [place] [address] Kory Garcia MD [address] [place] [address] 12/29/2024 1:00 PM EST Office Visit [address] [phone] 01/07/2025 11:00 AM EST Office Visit [address] [address] Greg Stringer PAGinaC [address] [address] 01/23/2025 10:30 AM EST Appointment [facility] [address] [facility] 1 D 4th Floor [address] [place] [address] Lucinda Contreras, ENGINEER STATION MAINLINE [address] [place] [address] 03/03/2025 11:45 AM EST Office Visit [facility] [address] [place] [address] Lucinda Contreras, ENGINEER STATION MAINLINE [address] [place] [address] 03/24/2025 3:00 PM EST Office Visit [facility] [address] [facility] [address] [place] [address] Alexandr Arboleda MD 651 [facility] Building 19 [place], [place] [address] 03/31/2025 10:45 AM EST Office Visit [facility] [address] [place] [address] Carl Rivera MD [address] [place], [place] [address] documented as of this encounter Visit Diagnoses Not on filedocumented in this encounter Additional Health Concerns Assessment Noted Time A fall risk assessment has been complete d for the patient 12/02/2018 1:25 PM EDT documented as of this encounter Care Teams Validation Engineer Relationship Specialty Start Date End Date Venkatesh Lan MD [address] [place] [address] PCP - General 09/07/09 Alexandr Arboleda MD [address] [place] [address] Internal Medicine-Rheumatology 03/10/14 documented as of this encounter
== END 2024-12-10 23:59 | disposition home or self-care (01) ==
LOC: RT 13:27
PROVIDERS: PCP Internal Medicine; Visit Provider Internal Medicine
DX: I08.8 Other rheumatic multiple valve diseases (principal); I11.9 Hypertensive heart disease without heart failure; R94.30 Abnormal result of cardiovascular function study, unspecified; E78.5 Hyperlipidemia, unspecified
CPT/HCPCS: 93306